=== PATIENT | male | born 1975 | race Native Hawaiian/Other Pacific Islander ===

== ENCOUNTER 2020-04-19 12:15 | Outpatient (CLI) | payer OTHER | END 2020-04-19 23:59 | disposition home or self-care (01) | LOC: RAD 12:15 | PROVIDERS: ATTEND Nurse Practitioner Family | DX: U07.1 COVID-19 (principal) ==

== ENCOUNTER 2021-03-03 08:41 | Outpatient (CLI) | payer OTHER | END 2021-03-03 19:48 | disposition home or self-care (01) | LOC: MRI 08:41 | PROVIDERS: ATTEND Internal Medicine | DX: R51.9 Headache, unspecified (principal); G45.9 Transient cerebral ischemic attack, unspecified | CPT/HCPCS: A9576 ==

== ENCOUNTER 2021-03-18 14:16 | Emergency (ER) | payer OTHER ==
[~2021-03-18] VITALS: Ht 157.5 cm; Wt 99.8 kg
[2021-03-18 14:59] LABS: PLATELET COUNT 596 K/uL (142-355)
[2021-03-18 15:16] LABS: POTASSIUM 3.7 mmol/L (3.6-5.2)
[2021-03-18 16:02] VITALS: BP 122/87; TEMP 98.5
== END 2021-03-18 16:03 | disposition home or self-care (01) ==
LOC: ED 14:16
PROVIDERS: Family Medicine
DX: R07.89 Other chest pain (principal); K21.9 Gastro-esophageal reflux disease without esophagitis
CPT/HCPCS: 80053; 82550; 84484; 85027; 85610; 85730; 93005; 99283